=== PATIENT | male | born 1950 | race African-American/Black ===

== ENCOUNTER 2019-06-08 07:25 | Day surgery (SDC) | payer BC ==
[2019-06-08] VITALS (11 sets, daily range): BP systolic 118–136; BP diastolic 59–84
[~2019-06-08] VITALS: Ht 177.8 cm; Wt 88.2 kg
[~2019-06-08 07:25] MED LIST: LEVO75TA PO; clindamycin-Cleocin 900mg/D5W 50 ML IV ONE; famotidine 20mg tablet PO ONE; ringers solution, lacted 1,000 ML IV SCH
[2019-06-08] MEDS ORDERED: ringers solution, lacted 1,000 ML IV SCH (09:18)
[2019-06-08] MEDS ORDERED: fentaNYL/PF 50MCG/1 ML 2ML syringe IV PRN ×2 (09:20)
[2019-06-08] MEDS ORDERED: ondansetron/PF 4mg/2ml inj IV PRN (09:20)
[2019-06-08] MEDS ORDERED: hydrALAZINE 20mg/ml inj. IV PRN (09:20)
[2019-06-08] MEDS ORDERED: morphine 4 MG/ML inj SYRINge IV PRN ×2 (09:20)
[2019-06-08] MEDS ORDERED: labetalol 20mg/4ml (5mg/ml) syringe IV PRN (09:20)
[2019-06-08 09:50] LABS: BASOPHILS % (AUTO) 0.5 % (0-1); EOSINOPHILS # (AUTO) 0.1 X10'3 (0-0.9); EOSINOPHILS % (AUTO) 3.3 % (0-6); LYMPHOCYTES # (AUTO) 1.4 X10'3 (1.1-4.8); LYMPHOCYTES % (AUTO) 33.5 % (21-51); MEAN CORPUSCULAR HEMOGLOBIN 27.3 PG (27.0-31.0); MEAN CORPUSCULAR HGB CONC 33.5 g/dL (33.0-36.5); MEAN CORPUSCULAR VOLUME 81.4 FL (78-98); MEAN PLATELET VOLUME 7.7 FL (7.4-10.4); MONOCYTES # (AUTO) 0.4 X10'3 (0-0.9); MONOCYTES % (AUTO) 9.8 % (2-12); NEUTROPHILS # (AUTO) 2.3 X10'3 (1.8-7.7); NEUTROPHILS % (AUTO) 52.9 % (42-75); PRE OP HEMOGLOBIN 15.1 g/dL (14.0-17.9); PRE OP PLATELET COUNT 246 X10'3 (140-440); RED BLOOD COUNT 5.53 X10'6 (4.70-6.10)
[2019-06-08] MEDS ORDERED: BUPIVAcaine/PF 2.5 mg/ml (0.25%) 30ml vial ONE (09:59)
[2019-06-08 10:03] LABS: ALBUMIN 3.7 G/DL (3.4-5.0); ALKALINE PHOSPHATASE 68 IU/L (46-116); BLOOD UREA NITROGEN 16 MG/DL (7-18); CALCIUM 8.9 MG/DL (8.5-10.1); CHLORIDE 106 MMOL/L (99-107); CREATININE 1.14 MG/DL (0.60-1.10); PRE OP ALT 28 U/L (30-65); PRE OP ANION GAP 4 (8-16); PRE OP AST 16 U/L (10-37); PRE OP BILIRUB, TOTAL 0.5 MG/DL (0.0-1.0); PRE OP GLUCOSE 102 MG/DL (70-104); PRE OP POTASSIUM 4.5 MMOL/L (3.4-5.1); PRE OP SODIUM 140 MMOL/L (135-145); TOTAL CARBON DIOXIDE 29.6 MMOL/L (24-32); TOTAL PROTEIN 7.5 G/DL (6.4-8.2); eGFR 78 ML/MIN
[2019-06-08 10:11] LABS: CLARITY,URINE CLEAR (Clear); COLOR,URINE YELLOW (Yellow); GLUCOSE, URINE NEGATIVE (Neg); KETONES,URINE NEGATIVE (Neg); LEUKOCYTE ESTERASE ,URINE NEGATIVE (Neg); NITRITES, URINE NEGATIVE (Neg); OCCULT BLOOD,URINE NEGATIVE (Neg); PROTEIN,URINE NEGATIVE (Neg); UA COLLECTION TYPE VOIDED; UROBILINOGEN,URINE 0.2 E.U/dL (0.2-1.0)
[2019-06-08] MEDS ORDERED: fentaNYL/PF 50MCG/1 ML 2ML syringe ONE (11:30)
[2019-06-08] MEDS ORDERED: midazolam 2 mg/2 ml injection ONE (11:30)
[2019-06-08] MEDS ORDERED: ondansetron/PF 4mg/2ml inj ONE (11:31)
[2019-06-08] MEDS ORDERED: propofol inj 20 ML IV ONE (11:31)
[2019-06-08] MEDS ORDERED: LIDOcaine 2% (20mg/ml) 5ml vial ONE (11:31)
[2019-06-08] MEDS ORDERED: dexamethasone sod phosphate 4mg/ml inj. ONE (11:31)
[2019-06-08] MEDS ORDERED: sevoflurane 250ml liquid IH ONE (11:41)
[2019-06-08] MEDS ORDERED: bacitracin 15gm ointment TP ONE (12:18)
--- NOTE | 2019-06-08 12:24 | NUR ---
Received from OR via ROB, accompanied by Anesthesiologist DR ROSADO and report given by Anesthesiologist. PT DROWSY, NO S/S OF DISTRESS, DISCOMFORT. LEFT JOSE W/BRITTNEY HOLLINS. Addendum: 06/08/19 at 1303 by Lubna Daniel RN Amended: Links added.
[2019-06-08] MEDS ORDERED: acetaminophen 1,000mg/100ml IV 100 ML IV ONE (13:05)
--- NOTE | 2019-06-08 13:54 | NUR ---
D/C INSTRUCTIONS GIVEN TO AND GONE OVER W/PT AND PTS WHO VERBALIZE UNDERSTANDING, PT D/CD TO HOME VIA W/C TO PRIVATE VEHICLE W/O INCIDENT. Addendum: 06/08/19 at 1411 by Lubna Daniel RN Amended: Links added.
== END 2019-06-08 13:54 | disposition home or self-care (01) ==
LOC: PAS 07:25
PROVIDERS: ATTEND Surgery
DX: R59.0 Localized enlarged lymph nodes (principal); E03.9 Hypothyroidism, unspecified; Z90.49 Acquired absence of other specified parts of digestive tract; Z98.890 Other specified postprocedural states; Z79.899 Other long term (current) drug therapy; Z88.8 Allergy status to other drugs, medicaments and biological substances; Z87.891 Personal history of nicotine dependence; Z88.0 Allergy status to penicillin; Z72.89 Other problems related to lifestyle; Z80.0 Family history of malignant neoplasm of digestive organs; Z82.49 Family history of ischemic heart disease and other diseases of the circulatory system
CPT/HCPCS: 36415; 38531; 80053; 81003; 85025; 93005; J0131; J1100; J2001; J2250; J2405; J2704; J3010; J3490; J7120; A4215; A4618; A7000